=== PATIENT | female | born 1970 | race Caucasian/White ===

== ENCOUNTER 2022-08-02 07:53 | Day surgery (SDC) | payer OTHER ==
[~2022-08-02] VITALS: Ht 162.6 cm; Wt 106.6 kg
[~2022-08-02 07:53] MED LIST: ACEASPCAF PO; ALBU90OI6; ALBU90OI6 INH; AZEL137S; AZIT250 PO; BUSP15 PO; CARI350 PO; CETI10 PO; CODGUAEL PO; CYCL10; CYCL10 PO; ESCI10; ESTR.1TPW; ESTRTP PV; FEM RING; FENO600 PO; HYDACE5 PO; HYDMOR2 PO; LACT10SY PO; LEVSOD50 PO; LORA10ER; NAPR500 PO; NORT75 PO; ORACON; PRED20 PO; RXCODGUASY PO; RXHYD5325 PO; RXHYDACE PO; RXHYDMOR2 PO; TOPI100; TOPI50 PO; [UNRECOGNIZED DRUG - REMARK]
[2022-08-02] MEDS ORDERED: PREG75 (08:09)
[2022-08-02] MEDS ORDERED: TIZA4 (08:09)
[2022-08-02] MEDS ORDERED: ESTRADIOL1 EAC2 (08:10)
[2022-08-02] MEDS ORDERED: LORA10ER (08:10)
[2022-08-02] MEDS ORDERED: DOCU100 (08:10)
== END 2022-08-02 10:40 | disposition home or self-care (01) ==
LOC: ORSCSDS 07:53
PROVIDERS: Student in an Organized Health Care Education/Training Program
PROC: 0DBM8ZX Excision of Descending Colon, Via Natural or Artificial Opening Endoscopic, Diagnostic (ICD-10-PCS; principal; 2022-08-02 09:15)
DX: Z12.11 Encounter for screening for malignant neoplasm of colon (principal); D12.4 Benign neoplasm of descending colon; J45.909 Unspecified asthma, uncomplicated; E03.9 Hypothyroidism, unspecified; E66.01 Morbid (severe) obesity due to excess calories; Z68.41 Body mass index [BMI] 40.0-44.9, adult; Z79.899 Other long term (current) drug therapy
CPT/HCPCS: 88305; J2250; J2704; J7120

== ENCOUNTER → 2023-03-23 | Outpatient (CLI) | payer BC ==
[~2023-03-23] MED LIST changes: +DOCU100; +ESTRADIOL1 EAC2; +PREG75; +TIZA4
== END | disposition home or self-care (01) ==
LOC: LAB 08:30 → LAB SHORT 08:30
DX: R30.0 Dysuria (principal)
CPT/HCPCS: 87077; 87086; 87186